=== PATIENT | female | born 1950 | race Caucasian/White ===

== ENCOUNTER 2018-01-15 12:58 | Emergency (ER) | payer MEDICARE, OTHER ==
[2018-01-15 13:17] VITALS: BP 129/64
--- NOTE | 2018-01-15 13:36 | EDM.PDOC ---
ED HPI GENERAL MEDICAL PROBLEM - General Chief Complaint: Upper Extremity Injury/Pain Stated Complaint: RIGHT SHOULDER/ARM PAIN Time Seen by Provider: 01/15/18 13:20 Source of Information: Reports: Patient, Old Records History Limitations: Reports: No Limitations - History of Present Illness INITIAL COMMENTS - FREE TEXT/NARRATIVE: 67 yo right handed female presents with rapidly progressive R shoulder pain over the past few days. Last night couldn't sleep due to the pain even though she took an Aleve. She took a 2nd Aleve about 0700h this morning. Pain still severe. Not able to use the R arm. Had been doing more computer work recently before the onset of the pain. No hx of the same. Onset: Gradual Onset Date: 01/12/18 Duration: Day(s):, Getting Worse Location: Reports: Upper Extremity, Right Quality: Reports: Ache Severity: Moderate Improves with: Reports: Rest Worsens with: Reports: Movement Context: Reports: Other (uncertain cause, no injury apparent) Associated Symptoms: Reports: No Other Symptoms Treatments CLIENT SUPPORT ADMINISTRATOR: Reports: NSAIDS Right Arm Pain Score (Numeric/FACES): 8 - Related Data Allergies Allergy/AdvReac Type Severity Reaction Status Date / Time nickel Allergy Rash Verified 01/15/18 13:31 erythromycin base AdvReac Nausea and Verified 01/15/18 13:31 Vomiting Home Meds: Home Meds Aspirin [Low Dose Aspirin EC] 81 mg PO DAILY 09/29/15 [History] Calcium Carbonate/Vitamin D3 [Calcium 1,000 + D3 Caplet] 1 each PO DAILY [History] L.acidoph,Paracasei, B.lactis [Probiotic] 1 each PO DAILY 09/29/15 [History] Loperamide [Imodium] 2 mg PO Q6H 09/29/15 [History] Lutein 10 mg PO DAILY 09/29/15 [History] Multivitamin with Minerals [Multiple Vitamin] 1 tab PO DAILY 09/29/15 [History] Triamcinolone Acetonide [Triamcinolone Acetonide 0.1% Crm] 1 applic TOP ASDIRECTED PRN 09/29/15 [History] Acetaminophen [Tylenol] 650 mg PO Q6H PRN 01/30/16 [History] Bismuth Subsalicylate [Pepto Bismol] 2 tab PO TID 01/30/16 [History] Past Medical History HEENT History: Reports: Other (See Below) Other HEENT History: saw retinal specialist for "thinning of gel in eye" - no longer a concern Cardiovascular History: Reports: Heart Murmur Gastrointestinal History: Reports: Irritable Bowel Syndrome, Other (See Below) Other Gastrointestinal History: collagenous colitis Musculoskeletal History: Reports: Back Pain, Chronic, Other (See Below) Other Musculoskeletal History: tendonitis repair, trigger finger, CTR, hammer toe right 2nd toe - Past Surgical History Cardiovascular Surgical History: Reports: None GI Surgical History: Reports: Colonoscopy Review of Systems - Review of Systems Review Of Systems: See Below Constitutional: Reports: No Symptoms Eyes: Reports: No Symptoms Mouth/Throat: Reports: No Symptoms Respiratory: Reports: No Symptoms Cardiovascular: Reports: No Symptoms GI/Abdominal: Reports: No Symptoms Musculoskeletal: Reports: Shoulder Pain (right) Skin: Reports: No Symptoms Neurological: Reports: No Symptoms ED EXAM, GENERAL - Physical Exam Exam: See Below Exam Limited By: No Limitations General Appearance: Alert, WD/WN, No Apparent Distress Eye Exam: Bilateral Eye: Normal Inspection Ears: Normal External Exam, Normal Canal, Hearing Grossly Normal Ear Exam: Bilateral Ear: Auricle Normal, Canal Normal Nose: Normal Inspection, Normal Mucosa, No Blood Throat/Mouth: Normal Inspection, Normal Lips, Normal Oropharynx, Normal Voice, No Airway Compromise Head: Atraumatic, Normocephalic Neck: Normal Inspection Respiratory/Chest: No Respiratory Distress Extremities: Normal Inspection, No Pedal Edema, Arm Pain (R anterior deltoid over the biceps tendon. Resisted R arm flextion at [place] increases her shoulder pain.), Limited Range of Motion (due to pain). No: Pedal Edema, Increased Warmth, Redness Neurological: Alert, Oriented, CN II-XII Intact, Normal Cognition Psychiatric: Normal Affect, Normal Mood Skin Exam: Warm, Dry, Intact, Normal Color, No Rash Course - Vital Signs Last Recorded V/S: Last Vital Signs Temp 36.1 C 01/15/18 13:29 Pulse 73 01/15/18 13:29 Resp 16 01/15/18 13:29 BP 129/64 01/15/18 13:29 Pulse Ox 98 01/15/18 13:29 Departure - Departure Time of Disposition: 13:45 Disposition: Home, Self-Care 01 Condition: Good Clinical Impression: Bicipital tendonitis of right shoulder - Discharge Information Referrals: Sae Mckeon MD [Primary Care Provider] -
== END 2018-01-15 13:50 | disposition home or self-care (01) ==
LOC: JP.ED 12:58
DX: M75.21 Bicipital tendinitis, right shoulder (principal); Z88.1 Allergy status to other antibiotic agents; Z91.048 Other nonmedicinal substance allergy status; Z79.82 Long term (current) use of aspirin; Z79.899 Other long term (current) drug therapy
CPT/HCPCS: 99283